=== PATIENT | male | born 1955 | race Caucasian/White ===

== ENCOUNTER → 2022-06-12 | Outpatient (CLI) | payer MEDICARE, OTHER ==
[~2022-06-12] MED LIST: BASA100I SC; GLIM2TAB4 PO; LISI10TA22 PO; LISI2.5T9 PO; METF10004 PO; PIOG1TAB37 PO; ROSU20TA5 PO; SIMV40TA20 PO; STEG15TA PO; TRUL0.5I SC; TRUL10IN SC
== END ==
LOC: M LABSMTC 10:29
PROVIDERS: ATTEND Anesthesiology
DX: Z01.818 Encounter for other preprocedural examination (principal); Z11.52 Encounter for screening for COVID-19

== ENCOUNTER 2022-06-16 07:23 | Day surgery (SDC) | payer MEDICARE ==
[~2022-06-16] VITALS: Ht 167.6 cm; Wt 94.7 kg
[~2022-06-16 07:23] MED LIST changes: +NS 1,000 ML IV ONE
[2022-06-16] MEDS ORDERED: propofoL 200 MG/20 ML VIAL As Ordered ONE (08:23)
[2022-06-16] MEDS ORDERED: LIDOCAINE 2% 100MG/5ML SDV (FOR ANES.) As Ordered ONE (08:23)
[2022-06-16 08:49] VITALS: BP 106/69
== END 2022-06-16 08:59 | disposition home or self-care (01) ==
LOC: M OPP 07:23
PROVIDERS: ATTEND Internal Medicine Gastroenterology
DX: Z12.11 Encounter for screening for malignant neoplasm of colon (principal); Z86.010 Personal history of colon polyps; D12.4 Benign neoplasm of descending colon; K63.5 Polyp of colon; K57.30 Diverticulosis of large intestine without perforation or abscess without bleeding; K64.8 Other hemorrhoids; E11.9 Type 2 diabetes mellitus without complications; Z87.891 Personal history of nicotine dependence; Z79.4 Long term (current) use of insulin; Z79.02 Long term (current) use of antithrombotics/antiplatelets; Z79.899 Other long term (current) drug therapy

== ENCOUNTER → 2025-07-21 | Outpatient (REF) | payer MEDICARE, MEDICAID ==
[~2025-07-21] MED LIST changes: -NS 1,000 ML IV ONE; -ROSU20TA5 PO; +ROSU20TA86 PO
== END ==
LOC: M LAB REF 16:10
PROVIDERS: ATTEND Otolaryngology
DX: H61.22 Impacted cerumen, left ear (principal); H61.302 Acquired stenosis of left external ear canal, unspecified